=== PATIENT | male | born 1940 | race Caucasian/White ===

== ENCOUNTER 2021-10-09 10:45 | Emergency (ER) | payer MEDICARE, OTHER ==
[2021-10-09 10:58] VITALS: O2SAT 96
[2021-10-09] MEDS ORDERED: TYLENOL 325 MG PO ONE (11:07)
--- NOTE | 2021-10-09 11:09 | ERPHSYRPT ---
- History of Present Illness Time Seen by Provider: 10/09/21 10:55 Source: patient Patient Subjective Stated Complaint: Fall- left sided rib pain Triage Nursing Assessment: Patient ambulated back to ED and transferred self to bed. Patient A+O X3. Patient's skin pink, warm and dry. Patient complains of left sided rib pain after a fall yesterday. Patient states he was carrying boxes up stairs when he tripped causing his left side to land on the railing of the stairs. Patient complains of constant aching pain 5/10 with intermittent sharp pain when moving. No visible bruised or injuries noted. Physician History: Patient is an 81-year-old male presents to emergency department for evaluation of left rib pain. Patient states he was carrying boxes up the stairs when he missed stepped and fell. Patient fell onto the railing hitting his left rib. Since then patient has been experiencing localized pain that occurs with certain movements. No nausea vomiting or diaphoresis the fall was mechanical. No BHT or LOC. No neck pain. Cervical spine cleared clinically. Pain described as a ache that is well localized. No radiation. Pain worse with movement and palpation to the area right around the sixth rib. Pain improved with rest. Patient voices no other complaints concerns at this time. Timing/Duration: yesterday Severity: mild Modifying Factors: Improves With: movement Associated Symptoms: denies symptoms Allergies/Adverse Reactions: No Known Drug Allergies Allergy (Unverified 10/09/21 10:49) Hx Influenza Vaccination/Date Given: Yes Hx Pneumococcal Vaccination/Date Given: No Immunizations Up to Date: Yes Travel Risk - International Travel Have you traveled outside of the country in past 3 weeks: No - Coronavirus Screening Are you exhibiting any of the following symptoms?: No Close contact with a COVID-19 positive Pt in past 14-21 Days: No - Vaccine Status Have you recieved a Covid-19 vaccination: Yes [employer]: Mobile Complete - Review of Systems Constitutional: No Symptoms, No Fever, No Chills Eyes: No Symptoms Ears, Nose, & Throat: No Symptoms Respiratory: No Symptoms, No Cough, No Dyspnea Cardiac: No Symptoms, No Chest Pain, No Edema, No Syncope Abdominal/Gastrointestinal: No Symptoms, No Abdominal Pain, No Nausea, No Vomiting, No Diarrhea Genitourinary Symptoms: No Symptoms, No Dysuria Musculoskeletal: No Symptoms, No Back Pain, No Neck Pain Skin: No Symptoms, No Rash Neurological: No Symptoms, No Dizziness, No Focal Weakness, No Sensory Changes Psychological: No Symptoms Endocrine: No Symptoms Hematologic/Lymphatic: No Symptoms Immunological/Allergic: No Symptoms All Other Systems: Reviewed and Negative - Past Medical History Pertinent Past Medical History: Yes Neurological History: No Pertinent History ENT History: No Pertinent History Cardiac History: Hypertension Musculoskeletal History: No Pertinent History, Fibromyalgia GI Medical History: No Pertinent History History: No Pertinent History Male Reproductive Disorders: No Pertinent History - Past Surgical History Past Surgical History: Yes Neuro Surgical History: No Pertinent History Cardiac: Cardiac Stent Respiratory: No Pertinent History Gastrointestinal: No Pertinent History Genitourinary: No Pertinent History Musculoskeletal: No Pertinent History Male Surgical History: No Pertinent History - Social History Smoking Status: Never smoker Exposure to second hand smoke: No Drug Use: none Patient Lives Alone: No - Nursing Vital Signs Nursing Vital Signs: Initial Vital Signs Temperature 96.9 F 10/09/21 10:51 Pulse Rate 62 10/09/21 10:51 Respiratory Rate 18 10/09/21 10:51 O2 Sat by Pulse Oximetry 96 10/09/21 10:51 Pain Scale Pain Intensity 3 - Physical Exam General Appearance: no apparent distress, alert Eye Exam: PERRL/EOMI, eyes nml inspection Ears, Nose, Throat Exam: normal ENT inspection, TMs normal, pharynx normal, moist mucous membranes Neck Exam: normal inspection, non-tender, supple, full range of motion Respiratory Exam: normal breath sounds, chest tenderness (Tenderness to palpation at the antral lateral aspect of the left rib cage particularly near ribs 6. Overlying soft tissue intact no signs of trauma.), lungs clear, No respiratory distress Cardiovascular Exam: regular rate/rhythm, normal heart sounds, normal peripheral pulses, other (Point tenderness left anterolateral rib near rib #6. Overlying soft tissue intact. No signs of trauma. Lungs are clear.) Gastrointestinal/Abdomen Exam: soft, normal bowel sounds, No tenderness, No mass Back Exam: normal inspection, normal range of motion, No CVA tenderness, No ve rtebral tenderness Extremity Exam: normal inspection, normal range of motion, pelvis stable Neurologic Exam: alert, oriented x 3, cooperative, normal mood/affect, nml cerebellar function, nml station & gait, sensation nml, No motor deficits Skin Exam: normal color, warm, dry, No rash Lymphatic Exam: No adenopathy SpO2 Interpretation: normal SpO2: 96 O2 Delivery: Room Air - Course Nursing assessment & vital signs reviewed: Yes EKG Interpreted by Me: RATE ([id number]), Sinus Aldo, NORMAL AXIS, NORMAL INTERVALS - Radiology Exams Chest X-ray Interpretation: Teleradiologist Report (Single frontal view chest remains clear. Heart not enlarged. Bony thorax intact. Again with mild osteopenia and degenerative changes. Continued nonacute chest with chronic features.) Ribs X-ray Interpretation: Teleradiologist Report (2 view rib demonstrates mild osteopenia, mild acromioclavicular degenerative arthropathy, mild to moderate multilevel degenerative spondylosis, minimal dextroscoliosis centered at T7, L5 laminectomy and mild aortic calcifications. No other bony articular or soft tissue abnormalities) Ordered Tests: Active Orders 24 hr Category Date Time Status CHEST 1 VIEW (PORTABLE) Stat Exams 10/09/21 11:02 Completed RIBS UNILATERAL Stat Exams 10/09/21 11:02 Completed Medication Summary Discontinued Medications Generic Name Dose Route Start Last Admin Trade Name Risa PRN Reason Stop Dose Admin Acetaminophen 975 mg 10/09/21 11:07 10/09/21 11:12 Acetaminophen 325 Mg Tablet PO 10/09/21 11:08 975 mg STAT ONE Administration Acetaminophen Confirm 10/09/21 11:12 Acetaminophen 325 Mg Tablet Administered 10/09/21 11:13 Dose 975 mg .ROUTE .STK-MED ONE - Progress Progress: improved Progress Note: Patient reassessed. X-rays are negative. Chronic findings observed. No fractures or dislocations. No indication for further work-up at this time. Patient states is ready for discharge. He voices no other complaints at this time. EKG sinus bradycardia patient asymptomatic. Portions of this note were created with voice recognition technology. There may be grammatical, spelling, punctuation or sound alike errors 10/09/21 11:52 10/09/21 12:15 Counseled pt/family regarding: diagnosis, need for follow-up, rad results - Departure Departure Disposition: Home Clinical Impression: Fall, Contusion of rib on left side, Osteopenia, Spondylosis, Dextroscoliosis, Aortic calcification, Bradycardia Condition: Good Critical Care Time: No Referrals: FER HERRING [Primary Care Provider] - Follow up/PCP as directed Instructions: Contusion (DC) Additional Instructions: Discharge/Care Plan OMID PHAN was seen on 10/09/21 in the Emergency Room. The patient was counseled regarding Diagnosis,Lab results, Imaging studies, need for follow up and when to return to the Emergency Room. Prescriptions given: Discharge Note I have spoken with the patient and/or caregivers. I have explained the patient's condition, diagnosis and treatment plan based on the information available to me at this time. I have answered the patient's and/or caregiver's questions and addressed any concerns. The patient and/or caregivers have as good understanding of the patient's diagnosis, condition and treatment plan as can be expected at this point. The vital signs have been stable. The patient's condition is stable and appropriate for discharge from the emergency department. The patient will pursue further outpatient evaluation with the primary care physician or other designated or consulting physician as outlined in the discharge instructions. The patient and/or caregivers are agreeable to this plan of care and follow-up instructions have been explained in detail. The patient and/or caregivers have received these instruction. The patient/and or caregivers are aware that any significant change in condition or worsening of symptoms should prompt an immediate return to this or the closest emergency department or call 911.
[2021-10-09] MEDS ORDERED: TYLENOL 325 MG ONE (11:12)
--- NOTE | 2021-10-09 11:42 | XRAY ---
Indication: Pain following fall. Comparison: None 2 view left ribs demonstrates mild osteopenia, mild acromioclavicular degenerative arthropathy, mild/moderate multilevel degenerative spondylosis, minimal dextroscoliosis centered at T7, L5 laminectomy, and mild aortic calcifications. No other bony, articular, or soft tissue abnormalities.
--- NOTE | 2021-10-09 11:44 | XRAY ---
Indication: Left-sided pain following fall. Comparison: November 27, 2020. Single frontal chest remains clear. Heart not enlarged. Bony thorax intact again with mild osteopenia and degenerative changes. Impression: Continued nonacute chest with chronic features.
[2021-10-09 12:01] VITALS: BP 133/75; PULSE 49
== END 2021-10-09 12:16 | disposition home or self-care (01) ==
LOC: ED 10:45
DX: S20.212A Contusion of left front wall of thorax, initial encounter (principal); W10.9XXA Fall (on) (from) unspecified stairs and steps, initial encounter; M85.88 Other specified disorders of bone density and structure, other site; M47.815 Spondylosis without myelopathy or radiculopathy, thoracolumbar region; M41.9 Scoliosis, unspecified; I70.0 Atherosclerosis of aorta; R00.1 Bradycardia, unspecified; I10 Essential (primary) hypertension
CPT/HCPCS: 71045; 71100; 93005; 99284; A9270-GY